=== PATIENT | female | born 1990 | race Caucasian/White ===

== ENCOUNTER 2017-01-17 18:17 | Emergency (ER) | payer MEDICAID ==
[~2017-01-17] VITALS: Ht 152.4 cm; Wt 55.0 kg
[2017-01-17 19:30] LABS: CLARITY URINE TURBID (CLEAR); COLOR URINE DARK YELLOW (YELLOW); GLUCOSE URINE NEGATIVE (NEGATIVE); KETONES URINE TRACE (NEGATIVE); LEUKOCYTE ESTERASE URINE 1+ (NEGATIVE); NITRITE URINE NEGATIVE (NEGATIVE); OCCULT BLOOD URINE 3+ (NEGATIVE); PROTEIN URINE 2+ (NEGATIVE); SPECIFIC GRAVITY URINE 1.039 (1.005-1.030)
[2017-01-17 19:41] LABS: *AMPHETAMINES SCREEN URINE NEGATIVE (NEGATIVE); *BARBITURATES SCREEN URINE NEGATIVE (NEGATIVE); *BENZODIAZEPINES SCREEN URINE NEGATIVE (NEGATIVE); *COCAINE SCREEN URINE NEGATIVE (NEGATIVE); CANNABINOID URINE SCREEN NEGATIVE (NEGATIVE); METHADONE URINE SCREEN NEGATIVE (NEGATIVE); OPIATES URINE SCREEN NEGATIVE (NEGATIVE); PHENCYCLIDINE URINE SCREEN NEGATIVE (NEGATIVE)
[2017-01-17 19:43] LABS: BASOPHILS % 0.6 % (0.0-2.0); EOSINOPHILS % 1.1 % (0.0-5.0); HEMATOCRIT. 38.7 % (36.0-48.0); HEMOGLOBIN. 13.1 g/dL (12.0-16.0); MEAN CORPUSCULAR HEMOGLOBIN 32.2 pg (28.0-32.0); MEAN PLATELET VOLUME 8.5 fl (7.4-10.4); NEUTROPHILS % 72.3 % (40.0-76.0); PLATELET 268 x1000/uL (130-400); RED BLOOD CELL COUNT 4.07 mill/uL (4.2-5.4); RED CELL DISTRIBUTION WIDTH 12.4 % (11.6-14.6)
[2017-01-17 19:53] LABS: HCG SCREEN NEGATIVE
[2017-01-17] MEDS ORDERED: LORAZEPAM 1MG TABLET PO ONE (22:45)
[2017-01-18 01:28] LABS: CHLORIDE 106 mEq/L (98-107)
[2017-01-18 01:34] LABS: CARBON DIOXIDE 26 mEq/L (21-32)
[2017-01-18 07:45] VITALS: BP 120/70
[2017-01-18] MEDS ORDERED: HALOPERIDOL LACTATE 5MG/ML VIAL IM STA (09:16)
[2017-01-18] MEDS ORDERED: DIPHENHYDRAMINE 50MG/ML VIAL IM STA (09:16)
== END 2017-01-18 09:59 | disposition home or self-care (01) ==
LOC: ER 18:32
DX: R44.0 Auditory hallucinations (principal); F41.9 Anxiety disorder, unspecified; F32.9 Major depressive disorder, single episode, unspecified; Z91.14 Patient's other noncompliance with medication regimen
CPT/HCPCS: 36415; 80048; 80305; 80329; 81001; 84703; 85025; 99284; G0482

== ENCOUNTER 2018-06-11 17:20 | Inpatient (IN) | payer MEDICAID, OTHER ==
[~2018-06-11] VITALS: Ht 154.9 cm; Wt 49.9 kg
[2018-06-11 18:31] LABS: CHLORIDE 107 mEq/L (98-107)
[2018-06-11 18:35] LABS: ETHANOL BLOOD < 10 mg/dL; HEMATOCRIT. 42.7 % (36.0-48.0); HEMOGLOBIN. 14.3 g/dL (12.0-16.0); MEAN CORPUSCULAR HEMOGLOBIN 32.1 pg (28.0-32.0); MEAN CORPUSCULAR VOLUME 96.1 fL (81.0-99.0); MEAN PLATELET VOLUME 9.7 fl (7.4-10.4); PLATELET 289 x1000/uL (130-400); RED BLOOD CELL COUNT 4.45 mill/uL (4.2-5.4); RED CELL DISTRIBUTION WIDTH 12.7 % (11.6-14.6)
[2018-06-11 18:49] LABS: CLARITY URINE CLEAR (CLEAR); COLOR URINE YELLOW (YELLOW); KETONES URINE 4+ (NEGATIVE); LEUKOCYTE ESTERASE URINE NEGATIVE (NEGATIVE); NITRITE URINE NEGATIVE (NEGATIVE); OCCULT BLOOD URINE TRACE (NEGATIVE); PH URINE 5.5 (4.5-8.0); PROTEIN URINE 1+ (NEGATIVE); SPECIFIC GRAVITY URINE 1.029 (1.005-1.030); UROBILINOGEN URINE 0.2 E.U./dL (0.2-1.0)
[2018-06-11 18:57] LABS: *BARBITURATES SCREEN URINE NEGATIVE (NEGATIVE)
[2018-06-11 18:58] LABS: *AMPHETAMINES SCREEN URINE NEGATIVE (NEGATIVE); *BENZODIAZEPINES SCREEN URINE NEGATIVE (NEGATIVE); *COCAINE SCREEN URINE NEGATIVE (NEGATIVE); CANNABINOID URINE SCREEN NEGATIVE (NEGATIVE); METHADONE URINE SCREEN NEGATIVE (NEGATIVE); OPIATES URINE SCREEN NEGATIVE (NEGATIVE); PHENCYCLIDINE URINE SCREEN NEGATIVE (NEGATIVE)
[2018-06-11 19:14] LABS: PLATELET ESTIMATE NORMAL
[2018-06-11 19:37] LABS: CREATINE KINASE 78 IU/L (26-192)
[2018-06-11] MEDS ORDERED: ZIPRASIDONE MESYLATE 20MG/VIAL IM ONE (20:30)
[2018-06-11] MEDS ORDERED: MIDAZOLAM HCL 2 MG/2 ML VIAL IM ONE (20:30)
[2018-06-11] MEDS ORDERED: SODIUM CHLORIDE 0.9% 1000ML BAG (SEPSIS BOLUS) IV ONE (22:00)
[2018-06-12] MEDS ORDERED: LORAZEPAM 2MG/ML CPJ IM ONE
[2018-06-12] MEDS ORDERED: ONDANSETRON HCL 4MG/2ML INJ IV ONE (00:30)
[2018-06-12] MEDS ORDERED: CEFTRIAXONE SODIUM 1 G/VIAL IM ONE (01:45)
[2018-06-12] MEDS ORDERED: WATER IV ONE (02:30)
[2018-06-12] MEDS ORDERED: DEXTROSE 5% IV ONE (02:30)
[2018-06-12] MEDS ORDERED: CEFTRIAXONE IV ONE (02:30)
[2018-06-12] MEDS ORDERED: CEFTRIAXONE 1 G PREMIX 50 ML IV NR (02:45)
[2018-06-12 10:00] VITALS: BP 100/54
[2018-06-12] MEDS ORDERED: ACETAMINOPHEN 325MG TABLET PO PRN (10:00)
[2018-06-12] MEDS ORDERED: CLONIDINE 0.1MG TABLET PO PRN (10:00)
[2018-06-12] MEDS ORDERED: ACETAMINOPHEN 650MG SUPP PR PRN (10:00)
[2018-06-12] MEDS ORDERED: IPRATROPIUM/ALBUTEROL 0.5-3(2.5)MG/3ML NEB INH PRN (10:00)
[2018-06-12] MEDS ORDERED: MAGNESIUM/ALUMINUM HYDROXIDE/SIMETHICONE 30ML UDC PO PRN (10:00)
[2018-06-12] MEDS ORDERED: NA PHOS,M-B/NA PHOS,DI-BA ENEMA 118ML PR PRN (10:00)
[2018-06-12] MEDS ORDERED: ONDANSETRON HCL 4MG/2ML INJ IV PRN (10:00)
[2018-06-12] MEDS ORDERED: ACETAMINOPHEN 650MG/20.3ML UDC GT PRN (10:00)
[2018-06-12 11:59] VITALS: BP 102/58
[2018-06-12 12:12] LABS: BASOPHILS % 0.3 % (0.0-2.0); EOSINOPHILS % 0.1 % (0.0-5.0); HEMATOCRIT. 33.9 % (36.0-48.0); HEMOGLOBIN. 11.3 g/dL (12.0-16.0); LYMPHOCYTES % 15.6 % (20.0-50.0); MEAN CORPUSCULAR HEMOGLOBIN 32.3 pg (28.0-32.0); MEAN PLATELET VOLUME 9.3 fl (7.4-10.4); MONOCYTES % 7.8 % (2.0-8.0); NEUTROPHILS % 76.2 % (40.0-76.0); PLATELET 217 x1000/uL (130-400); RED BLOOD CELL COUNT 3.49 mill/uL (4.2-5.4); RED CELL DISTRIBUTION WIDTH 12.6 % (11.6-14.6)
[2018-06-12 12:36] LABS: CHLORIDE 116 mEq/L (98-107)
[2018-06-12] MEDS: SODIUM CHLORIDE 0.9% INJ 3ML FLUSH IVF SCH ×2 (13:46→21:16)
[2018-06-12 16:00] VITALS: BP 116/58
[2018-06-12] MEDS ORDERED: QUET300T2 MT (17:47)
[2018-06-12] MEDS ORDERED: FAMO20TA8 MT (17:47)
[2018-06-12] MEDS ORDERED: BENZ1TAB7 MT (17:47)
[2018-06-12] MEDS ORDERED: SODIUM BICARBONATE 150 MEQ in SODIUM CHLORIDE 0.45% 850 ML IV SCH (18:15)
[2018-06-12] MEDS: SODIUM BICARBONATE 150 MEQ in SODIUM CHLORIDE 0.45% 1,000 ML IV SCH (19:06)
[2018-06-12 20:00] VITALS: BP_SYST 110; BP_SYST 155; BP_DIAS 139; BP_DIAS 71
[2018-06-13] MEDS: SODIUM CHLORIDE 0.9% INJ 3ML FLUSH IVF SCH ×3 (06:00→22:00)
[2018-06-13 08:00] VITALS: BP 112/56
[2018-06-13 12:00] VITALS: BP 97/53
[2018-06-13] MEDS: SODIUM BICARBONATE 150 MEQ in SODIUM CHLORIDE 0.45% 1,000 ML IV SCH (13:55)
[2018-06-13 20:00] VITALS: BP 100/52
[2018-06-13] MEDS ORDERED: QUETIAPINE FUMARATE 25MG TABLET PO SCH (21:15)
[2018-06-14] VITALS: BP 103/59
[2018-06-14 04:00] VITALS: BP 103/57
[2018-06-14] MEDS: SODIUM CHLORIDE 0.9% INJ 3ML FLUSH IVF SCH ×2 (06:00→13:47)
[2018-06-14 08:00] VITALS: BP 99/57
[2018-06-14] MEDS: FAMOTIDINE 20MG TABLET PO SCH ×2 (09:00→17:00)
[2018-06-14] MEDS: QUETIAPINE FUMARATE 100MG TABLET PO SCH ×2 (09:00→17:00)
[2018-06-14] MEDS: SODIUM BICARBONATE 150 MEQ in SODIUM CHLORIDE 0.45% 1,000 ML IV SCH (09:05)
[2018-06-14] MEDS: BENZTROPINE MESYLATE 0.5MG TABLET PO SCH ×2 (10:00→17:00)
[2018-06-14 12:00] VITALS: BP 92/59
[2018-06-14 16:00] VITALS: BP 97/60
[2018-06-14 20:00] VITALS: BP 103/69
[2018-06-15] VITALS: BP 101/55
[2018-06-15 04:00] VITALS: BP 105/56
[2018-06-15] MEDS: BENZTROPINE MESYLATE 0.5MG TABLET PO SCH ×2 (09:00→17:00)
[2018-06-15] MEDS: FAMOTIDINE 20MG TABLET PO SCH ×2 (09:00→17:00)
[2018-06-15] MEDS: QUETIAPINE FUMARATE 100MG TABLET PO SCH ×2 (09:00→17:00)
[2018-06-15] MEDS: SODIUM CHLORIDE 0.9% INJ 3ML FLUSH IVF SCH ×2 (14:00→21:54)
[2018-06-15 16:00] VITALS: BP 98/71
[2018-06-16 04:00] VITALS: BP 116/61
[2018-06-16] MEDS: SODIUM CHLORIDE 0.9% INJ 3ML FLUSH IVF SCH ×3 (06:00→22:00)
[2018-06-16 08:00] VITALS: BP 114/76
[2018-06-16] MEDS: BENZTROPINE MESYLATE 0.5MG TABLET PO SCH ×2 (08:07→16:37)
[2018-06-16] MEDS: QUETIAPINE FUMARATE 100MG TABLET PO SCH ×2 (08:07→16:38)
[2018-06-16] MEDS: FAMOTIDINE 20MG TABLET PO SCH ×2 (08:07→16:37)
[2018-06-16 11:35] VITALS: BP 97/70
[2018-06-16 16:00] VITALS: BP 96/65
[2018-06-16] MEDS: SODIUM BICARBONATE 150 MEQ in SODIUM CHLORIDE 0.45% 1,000 ML IV SCH (17:56)
[2018-06-16] MEDS ORDERED: DEXT 5%/0.9% NACL 1,000 ML IV SCH (22:00)
[2018-06-16] MEDS ORDERED: HALOPERIDOL 2MG TABLET PO SCH (22:00)
[2018-06-17] MEDS: SODIUM CHLORIDE 0.9% INJ 3ML FLUSH IVF SCH (06:00)
[2018-06-17] MEDS: FAMOTIDINE 20MG TABLET PO SCH (09:00)
[2018-06-17] MEDS: QUETIAPINE FUMARATE 100MG TABLET PO SCH (09:00)
[2018-06-17] MEDS: BENZTROPINE MESYLATE 0.5MG TABLET PO SCH (09:00)
[2018-06-18 08:00] VITALS: BP 91/60
[2018-06-18] MEDS: FAMOTIDINE 20MG TABLET PO SCH ×2 (09:00→16:44)
[2018-06-18] MEDS: QUETIAPINE FUMARATE 25MG TABLET PO SCH (09:00)
[2018-06-19] MEDS: SODIUM CHLORIDE 0.9% INJ 3ML FLUSH IVF SCH (06:00)
[2018-06-19] MEDS: FAMOTIDINE 20MG TABLET PO SCH ×2 (09:00→16:17)
[2018-06-19] MEDS: QUETIAPINE FUMARATE 25MG TABLET PO SCH (09:00)
[2018-06-20] MEDS: QUETIAPINE FUMARATE 25MG TABLET PO SCH (09:00)
[2018-06-20] MEDS: FAMOTIDINE 20MG TABLET PO SCH (09:00)
[2018-06-20 11:58] VITALS: BP 91/54
== END 2018-06-20 12:24 | disposition home or self-care (01) | DRG 422 ==
LOC: ER 17:20 → EDBEDREQ 06-12 02:41 → EDBEDREQTM 06-12 02:41 → ENRESERV 06-12 08:04 → ER 06-12 09:15 → 8WST 06-12 10:02 → 6EST 06-14 18:36
PROVIDERS: ADMIT Family Medicine; ATTEND Family Medicine
DX: E86.0 Dehydration (principal); E87.2 Acidosis; F31.9 Bipolar disorder, unspecified; D72.829 Elevated white blood cell count, unspecified; Z91.14 Patient's other noncompliance with medication regimen; Z81.8 Family history of other mental and behavioral disorders
CPT/HCPCS: 36415; 71045; 74176; 80305; 82550; 82962; 83605; 93005; 96372; 99285; C1893; G0482; J0696; J2060; J2250; J2405; J3486; J3490; J7030; J7060

== ENCOUNTER 2018-09-15 22:02 | Emergency (ER) | payer MEDICAID ==
[~2018-09-15] VITALS: Ht 157.5 cm; Wt 49.0 kg
[~2018-09-15 22:02] MED LIST: BENZ1TAB7 MT; FAMO20TA8 MT; QUET300T2 MT
[2018-09-15 23:11] LABS: BASOPHILS % 0.4 % (0.0-2.0); EOSINOPHILS % 2.5 % (0.0-5.0); HEMATOCRIT. 38.1 % (36.0-48.0); HEMOGLOBIN. 12.7 g/dL (12.0-16.0); LYMPHOCYTES % 18.3 % (20.0-50.0); MEAN CORPUSCULAR HEMOGLOBIN 32.3 pg (28.0-32.0); MEAN CORPUSCULAR VOLUME 96.9 fL (81.0-99.0); MEAN PLATELET VOLUME 8.1 fl (7.4-10.4); NEUTROPHILS % 73.8 % (40.0-76.0); PLATELET 266 x1000/uL (130-400); RED BLOOD CELL COUNT 3.94 mill/uL (4.2-5.4); RED CELL DISTRIBUTION WIDTH 13.3 % (11.6-14.6)
[2018-09-15 23:15] LABS: CHLORIDE 110 mEq/L (98-107)
[2018-09-15 23:20] LABS: ETHANOL BLOOD < 10 mg/dL
[2018-09-16 18:18] LABS: CLARITY URINE CLOUDY (CLEAR); COLOR URINE YELLOW (YELLOW); KETONES URINE TRACE (NEGATIVE); LEUKOCYTE ESTERASE URINE TRACE (NEGATIVE); NITRITE URINE NEGATIVE (NEGATIVE); OCCULT BLOOD URINE NEGATIVE (NEGATIVE); PH URINE 5.5 (4.5-8.0); PROTEIN URINE NEGATIVE (NEGATIVE); SPECIFIC GRAVITY URINE 1.023 (1.005-1.030); UROBILINOGEN URINE 0.2 E.U./dL (0.2-1.0)
[2018-09-16 18:27] LABS: *AMPHETAMINES SCREEN URINE NEGATIVE (NEGATIVE); CANNABINOID URINE SCREEN NEGATIVE (NEGATIVE); METHADONE URINE SCREEN NEGATIVE (NEGATIVE); OPIATES URINE SCREEN NEGATIVE (NEGATIVE); PHENCYCLIDINE URINE SCREEN NEGATIVE (NEGATIVE)
[2018-09-16 18:28] LABS: *BARBITURATES SCREEN URINE NEGATIVE (NEGATIVE); *BENZODIAZEPINES SCREEN URINE NEGATIVE (NEGATIVE); *COCAINE SCREEN URINE NEGATIVE (NEGATIVE)
[2018-09-17] MEDS ORDERED: SODIUM CHLORIDE 0.9% 1,000 ML IV ONE (06:48)
[2018-09-17] MEDS ORDERED: CEFTRIAXONE SODIUM 1 G/VIAL IM ONE (07:00)
[2018-09-17] MEDS ORDERED: CEFTRIAXONE 1 G PREMIX 50 ML IV ONE (07:00)
[2018-09-18] MEDS ORDERED: SODIUM CHLORIDE 0.9% 1,000 ML IV ONE (10:02)
[2018-09-18] MEDS ORDERED: DEXT 5%/0.45% NACL KCL 20MEQ/L 1,000 ML IV ONE (10:02)
[2018-09-18 13:29] LABS: CHLORIDE 116 mEq/L (98-107)
[2018-09-18] MEDS ORDERED: LORAZEPAM 2MG/ML CPJ IV ONE (15:45)
[2018-09-21 12:40] VITALS: BP 99/57
== END 2018-09-21 12:44 | disposition short-term general hospital (02) ==
LOC: EDUNIT# 22:24 → ER 22:24
DX: F29 Unspecified psychosis not due to a substance or known physiological condition (principal); F79 Unspecified intellectual disabilities; S40.022A Contusion of left upper arm, initial encounter; S40.021A Contusion of right upper arm, initial encounter; T14.8XXA Other injury of unspecified body region, initial encounter; Y09 Assault by unspecified means
CPT/HCPCS: 36415; 70450; 80048; 80053; 80305; 80307; 80320; 80329; 81003; 81025; 85025; 99284; J0696; J2060; J7030; G0480